=== PATIENT | female | born 1980 | race Caucasian/White ===

== ENCOUNTER 2016-10-19 19:11 | Inpatient (IN) | payer OTHER ==
[2016-10-19 20:10] LABS: HEMOGLOBIN 9.9 gm/dl (12.3-15.3); RED BLOOD COUNT 3.59 M/UL (4.00-5.10); WHITE BLOOD COUNT 12.8 K/UL (4.5-11.0)
[2016-10-20 03:40] LABS: HEMOGLOBIN 9.1 gm/dl (12.3-15.3); WHITE BLOOD COUNT 15.7 K/UL (4.5-11.0)
[2016-10-20 03:42] LABS: RED BLOOD COUNT 3.15 M/UL (4.00-5.10)
== END 2016-10-20 15:20 | disposition short-term general hospital (02) | DRG 765 ==
LOC: GENOP 19:11 → OB 20:05
PROVIDERS: Obstetrics & Gynecology; ADMIT Obstetrics & Gynecology
PROC: 10D00Z1 Extraction of Products of Conception, Low, Open Approach (ICD-10-PCS; principal; 2016-10-19 20:34)
DX: O69.4XX0 Labor and delivery complicated by vasa previa, not applicable or unspecified (principal); O30.043 Twin pregnancy, dichorionic/diamniotic, third trimester; O09.523 Supervision of elderly multigravida, third trimester; Z3A.34 34 weeks gestation of pregnancy; Z37.2 Twins, both liveborn
CPT/HCPCS: 36415; 82800; 85025; 85384; 85610; 85730; 86850; 86900; 86901; 86920; 90715; C9113; J0690; J0702; J1885; J2274; J2590; J2765; J3475; J7120